=== PATIENT | female | born 1965 | race Caucasian/White ===

== ENCOUNTER 2017-06-26 23:51 | Emergency (ER) | payer OTHER ==
[2017-06-27 01:40] VITALS: BP 185/80
[2017-06-27 03:12] LABS: Mean Corpuscular HGB Conc 30 % (30-34); Mean Corpuscular Volume 74 fl (79-97); Platelet Count 363 K/mm3 (140-440); Red Blood Count 5.06 M/mm3 (3.65-5.03); White Blood Count 11.7 K/mm3 (4.5-11.0)
[2017-06-27 03:25] LABS: Hematocrit 37.5 % (30.3-42.9); Hemoglobin 11.2 gm/dl (10.1-14.3); Mean Corpuscular Hemoglobin 22 pg (28-32); Red Cell Distribution Width 20.8 % (13.2-15.2)
[2017-06-27 03:49] LABS: Anion Gap 18 mmol/L; BUN/Creatinine Ratio 33; Blood Urea Nitrogen 13 mg/dL (7-17); Calcium 8.8 mg/dL (8.4-10.2); Carbon Dioxide 24 mmol/L (22-30); Chloride 100.4 mmol/L (98-107); Glucose 111 mg/dL (65-100); Potassium 5.5 mmol/L (3.6-5.0); Sodium 137 mmol/L (137-145)
[2017-06-27 04:02] LABS: Anisocytosis 1+; Basophils % (Manual) 0 % (0.0-1.8); Blastocytes % (Manual) 0 %; Diff Status Complete; Platelet Estimate Consistent w Auto
[2017-06-27 04:55] LABS: Cholesterol 270 mg/dL (50-199); HDL Cholesterol 80 mg/dL (40-59); LDL Cholesterol,Direct 146 mg/dL (50-130); Triglycerides 221 mg/dL (2-149)
--- NOTE | 2017-06-27 05:38 | Cat Scan Report ---
FINAL REPORT EXAM: CT HEAD/BRAIN WO CON HISTORY: headache TECHNIQUE: Routine axial imaging was obtained of the brain without IV contrast. FINDINGS: There are no attenuation abnormalities. There no evidence of acute stroke or hemorrhage. The ventricular system is appropriate in size. The basal cisterns appear normal. The visualized sinuses are clear. The mastoid air cells are well pneumatized. The calvarium appears intact IMPRESSION: Within normal limits.
== END 2017-06-27 03:00 | disposition left against medical advice (07) ==
LOC: ED 23:51
DX: R03.0 Elevated blood-pressure reading, without diagnosis of hypertension (principal); Z53.21 Procedure and treatment not carried out due to patient leaving prior to being seen by health care provider
CPT/HCPCS: 36415; 70450; 80048; 80061; 84484; 85007; 85025; 93005; 93010

== ENCOUNTER 2018-01-04 09:16 | Observation (INO) | payer OTHER ==
--- NOTE | 2018-01-04 10:52 | Emergency Department Report ---
Nadia Doc - Documentation Documentation: This is a 52-year-old female here with her family reports that she was seen by Dr. Jose Barajas yesterday and had blood work drawn and they called her and told her to come directly to the emergency room for blood transfusion. Patient reports that she feels like her heart is racing in and she is feeling tired with heavy menstrual cycle. Denies any nausea or vomiting. Has a history of high blood pressure and hyperthyroidism. Pain is 0-10. Denies any chest pain but short of breath with exertion. He is on propranolol and medication for hyperthyroidism Gen.: This is a 52-year-old female pale in appearance but nob toxic. Blood pressure 199/79 and heart rate is at 98 beats per minutes. Respiration 20 and she is afebrile with pulse ox 100% on room air Lungs: Clear to auscultation bilaterally, no rhonchi wheezes or rales. Normal work of breathing Cardiovascular: S1, S2. Apical R rate is at 98 bpm. Regular rate and rhythm plan CBC, CMP and type and screen Plan to be transferred to ED for blood transfusion if needed
--- NOTE | 2018-01-04 10:53 | Emergency Department Report ---
Blank Doc - Documentation Documentation: Patient is a 52-year-old female who is presenting with need for transfusion. Patient was seen by her primary care physician Dr. Barajas yesterday had blood drawn was called that she needed to come to the emergency department. Family does not know the exact level of her hemoglobin but was told that it was low enough that she needed a blood transfusion. Patient says some shortness of breath but denies any chest pain. Patient does have history of heavy menstrual periods which is most likely source of her anemia. Brief physical exam patient is tachycardic and pale. Patient will be moved to a treatment room for reevaluation of her CBC and likely transfusion and admission.
--- NOTE | 2018-01-04 11:25 | Emergency Department Report ---
ED General Adult HPI - General Chief complaint: Recheck/Abnormal Lab/Rx Stated complaint: NEED TRANSFUSION Time Seen by Provider: 01/04/18 10:51 Source: patient, family Mode of arrival: Ambulatory Limitations: Language Barrier - History of Present Illness Initial comments: Patient was told by her doctor to go to the ED for blood transfusion. -: Gradual, month(s) (1) Improves with: none Worsens with: none Associated Symptoms: weakness - Related Data Home Medications Medication Instructions Recorded Confirmed Last Taken Inderal 40 mg PO BID 06/27/17 01/04/18 01/04/18 Propylthiouracil 200 mg PO BID 06/27/17 01/04/18 01/04/18 Allergies Allergy/AdvReac Type Severity Reaction Status Date / Time No Known Allergies Allergy Verified 01/04/18 09:39 ED Review of Systems ROS: Stated complaint: NEED TRANSFUSION Other details as noted in HPI Comment: All other systems reviewed and negative Constitutional: denies: chills, fever Eyes: denies: eye pain ENT: denies: ear pain Respiratory: denies: cough, shortness of breath Cardiovascular: denies: chest pain, palpitations Endocrine: no symptoms reported Gastrointestinal: denies: abdominal pain, nausea, vomiting, diarrhea Genitourinary: denies: urgency, frequency Musculoskeletal: denies: back pain Skin: denies: rash, change in color Neurological: weakness. denies: headache, numbness Psychiatric: denies: anxiety, depression Hematological/Lymphatic: easy bleeding. denies: easy bruising ED Past Medical Hx - Past Medical History Hx Hypertension: Yes Additional medical history: Thyroid Disease - Surgical History Past Surgical History?: No - Social History Smoking Status: Never Smoker Substance Use Type: Alcohol - Medications Home Medications: Home Medications Medication Instructions Recorded Confirmed Last Taken Type Inderal 40 mg PO BID 06/27/17 01/04/18 01/04/18 History Propylthiouracil 200 mg PO BID 06/27/17 01/04/18 01/04/18 History ED Physical Exam - General Limitations: Language Barrier General appearance: alert, in no apparent distress - Head Head exam: Present: atraumatic, normocephalic, normal inspection - Eye Eye exam: Present: normal appearance, PERRL, EOMI Pupils: Present: normal accommodation - Neck Neck exam: Present: normal inspection, tenderness, full ROM - Respiratory Respiratory exam: Present: normal lung sounds bilaterally. Absent: respiratory distress, wheezes - Cardiovascular Cardiovascular Exam: Present: regular rate, normal rhythm, normal heart sounds - GI/Abdominal GI/Abdominal exam: Present: soft, normal bowel sounds. Absent: distended, tenderness, guarding, rebound - Rectal Rectal exam: Present: deferred - Extremities Exam Extremities exam: Present: normal inspection, full ROM, normal capillary refill - Back Exam Back exam: Present: normal inspection, full ROM. Absent: tenderness - Neurological Exam Neurological exam: Present: alert, oriented X3, CN II-XII intact - Psychiatric Psychiatric exam: Present: normal affect, normal mood - Skin Skin exam: Present: warm, dry, intact, normal color ED Course Vital Signs 01/04/18 01/04/18 01/04/18 09:21 11:11 12:33 Temperature 98.1 F 98.6 F Pulse Rate 113 H 78 Respiratory 20 16 18 Rate Blood Pressure 199/79 139/49 O2 Sat by Pulse 100 100 Oximetry - Reevaluation(s) Reevaluation #1: 01/04/18 12:23 I discussed patient care with the hospitalist documentation lead Dr Vasquez. He will admit patient to the hospital for further evaluation and management. ED Medical Decision Making - Lab Data Result diagrams: 01/04/18 10:58 01/04/18 10:58 - EKG Data -: EKG Interpreted by Me EKG shows normal: sinus rhythm Rate: normal (90) - EKG Data When compared to previous EKG there are: previous EKG unavailable Interpretation: normal EKG, other (No STEMI) - Radiology Data Radiology results: report reviewed - Medical Decision Making Symptomatic Anemia. Critical care attestation.: If time is entered above; I have spent that time in minutes in the direct care of this critically ill patient, excluding procedure time. ED Disposition Clinical Impression: Symptomatic anemia Disposition: OP ADMIT IP TO THIS HOSP Is pt being admited?: Yes Does the pt Need Aspirin: No Condition: Stable Referrals: VISHAL DE LA O MD [Primary Care Provider] - 3-5 Days Time of Disposition: 12:15
[2018-01-04 11:26] LABS: Basophils # (Auto) 0.1 K/mm3 (0.0-0.1); Basophils % (Auto) 1.4 % (0.0-1.8); Eosinophils # (Auto) 0.4 K/mm3 (0.0-0.4); Eosinophils % (Auto) 4.5 % (0.0-4.3); Lymphocytes # (Auto) 1.9 K/mm3 (1.2-5.4); Lymphocytes % (Auto) 22.1 % (13.4-35.0); Mean Corpuscular HGB Conc 31 % (30-34); Mean Corpuscular Volume 71 fl (79-97); Monocytes # (Auto) 0.6 K/mm3 (0.0-0.8); Monocytes % (Auto) 7.1 % (0.0-7.3); Platelet Count 498 K/mm3 (140-440); Red Blood Count 2.22 M/mm3 (3.65-5.03)
[2018-01-04 11:36] LABS: Alanine Aminotransferase 5 units/L (7-56); Albumin 3.7 g/dL (3.9-5); BUN/Creatinine Ratio 16; Blood Urea Nitrogen 11 mg/dL (7-17); Calcium 8.6 mg/dL (8.4-10.2); Hemolysis Index 1
[2018-01-04 11:39] LABS: Hematocrit 15.7 % (30.3-42.9); Hemoglobin 4.8 gm/dl (10.1-14.3)
[2018-01-04 11:41] LABS: Mean Corpuscular Hemoglobin 22 pg (28-32); Red Cell Distribution Width 21.9 % (13.2-15.2)
[2018-01-04] MEDS ORDERED: NACL 0.9% 500 ML 500 ML IV ONE ×2 (11:48→20:37)
[2018-01-04 12:29] LABS: INR 0.88 (0.87-1.13)
[2018-01-04 12:30] LABS: Partial Thromboplastin Time 25.8 Sec. (24.2-36.6)
[2018-01-04 14:19] LABS: Bacteria,Urine 1+ /HPF (Negative); Bilirubin,Urine NEG (Negative); Blood,Urine LG (Negative); Color,Urine Red (Yellow); Mucus,Urine FEW /HPF; Urobilinogen,Urine < 2.0 mg/dL (<2.0)
[2018-01-04 14:27] LABS: HCG Qualitative,Urine Negative (Negative)
--- NOTE | 2018-01-04 16:54 | History and Physical Report ---
History of Present Illness Date of examination: 01/04/18 Date of admission: 01/04/18 12:18 Chief complaint: CC Low H/H -sent by pcp for Blood transfusion History of present illness: History of Present Illness: Patient was told by her doctor to go to the ED for blood transfusion.-: Gradual , 1month(s) .Patient has heavy menstrual periods lasting for 6 days. History of BT 2 years ago.Has weakness and Lightheadedness. Improves with: none Worsens with: none Associated Symptoms: weakness Past Medical History Hx Hypertension: Yes Additional medical history: Thyroid Disease - Surgical History Past Surgical History?: No - Social History Smoking Status: Never Smoker Substance Use Type: Alcohol - Medications Home Medications: Home Medications Medication Instructions Recorded Confirmed Last Taken Type Inderal 40 mg PO BID 06/27/17 01/04/18 01/04/18 History Propylthiouracil 200 mg PO BID 06/27/17 01/04/18 01/04/18 History Review of Systems ROS: Stated complaint: NEED TRANSFUSION Other details as noted in HPI Comment: All other systems reviewed and negative Constitutional: denies: chills, fever Eyes: denies: eye pain ENT: denies: ear pain Respiratory: denies: cough, shortness of breath Cardiovascular: denies: chest pain, palpitations Endocrine: no symptoms reported Gastrointestinal: denies: abdominal pain, nausea, vomiting, diarrhea Genitourinary: denies: urgency, frequency Musculoskeletal: denies: back pain Skin: denies: rash, change in color Neurological: weakness. denies: headache, numbness Psychiatric: denies: anxiety, depression Hematological/Lymphatic: easy bleeding. denies: easy bruising Medications and Allergies Allergies Allergy/AdvReac Type Severity Reaction Status Date / Time No Known Allergies Allergy Verified 01/04/18 09:39 Home Medications Medication Instructions Recorded Confirmed Last Taken Type Inderal 40 mg PO BID 06/27/17 01/04/18 01/04/18 History Propylthiouracil 200 mg PO BID 06/27/17 01/04/18 01/04/18 History Exam - Constitutional Vitals: Temp Pulse Resp BP Pulse Ox 98.7 F 71 20 129/52 100 01/04/18 13:48 01/04/18 13:48 01/04/18 13:48 01/04/18 13:48 01/04/18 13:00 General appearance: Present: no acute distress, well-nourished - EENT Eyes: Present: PERRL ENT: hearing intact, clear oral mucosa - Neck Neck: Present: supple, normal ROM - Respiratory Respiratory effort: normal Respiratory: bilateral: CTA - Cardiovascular Heart rate: 78 Rhythm: regular Heart Sounds: Present: S1 & S2. Absent: rub, click - Extremities Extremities: pulses symmetrical, No edema Peripheral Pulses: within normal limits - Abdominal General gastrointestinal: Present: soft, non-tender, non-distended, normal bowel sounds Female genitourinary: Present: normal - Integumentary Integumentary: Present: clear, warm, dry - Musculoskeletal Musculoskeletal: gait normal, strength equal bilaterally - Psychiatric Psychiatric: appropriate mood/affect, intact judgment & insight - Neurologic Neurologic: CNII-XII intact, moves all extremities - Allied Health Allied health notes reviewed: nursing, case management Results - Labs CBC & Chem 7: 01/04/18 10:58 01/04/18 10:58 Labs: Laboratory Last Values WBC 8.4 K/mm3 (4.5-11.0) 01/04/18 10:58 RBC 2.22 M/mm3 (3.65-5.03) L 01/04/18 10:58 Hgb 4.8 gm/dl (10.1-14.3) L* 01/04/18 10:58 Hct 15.7 % (30.3-42.9) L* 01/04/18 10:58 MCV 71 fl (79-97) L 01/04/18 10:58 MCH 22 pg (28-32) L 01/04/18 10:58 MCHC 31 % (30-34) 01/04/18 10:58 RDW 21.9 % (13.2-15.2) H 01/04/18 10:58 Plt Count 498 K/mm3 (140-440) H 01/04/18 10:58 Lymph % (Auto) 22.1 % (13.4-35.0) 01/04/18 10:58 [place] % (Auto) 7.1 % (0.0-7.3) 01/04/18 10:58 Eos % (Auto) 4.5 % (0.0-4.3) H 01/04/18 10:58 Baso % (Auto) 1.4 % (0.0-1.8) 01/04/18 10:58 Lymph # 1.9 K/mm3 (1.2-5.4) 01/04/18 10:58 [place] # 0.6 K/mm3 (0.0-0.8) 01/04/18 10:58 Eos # 0.4 K/mm3 (0.0-0.4) 01/04/18 10:58 Baso # 0.1 K/mm3 (0.0-0.1) 01/04/18 10:58 Seg Neutrophils % 64.9 % (40.0-70.0) 01/04/18 10:58 Seg Neutrophils # 5.5 K/mm3 (1.8-7.7) 01/04/18 10:58 PT 12.4 Sec. (12.2-14.9) 01/04/18 11:50 INR 0.88 (0.87-1.13) 01/04/18 11:50 APTT 25.8 Sec. (24.2-36.6) 01/04/18 11:50 Sodium 133 mmol/L (137-145) L 01/04/18 10:58 Potassium 4.6 mmol/L (3.6-5.0) 01/04/18 10:58 Chloride 95.7 mmol/L (98-107) L 01/04/18 10:58 Carbon Dioxide 23 mmol/L (22-30) 01/04/18 10:58 Anion Gap 19 mmol/L 01/04/18 10:58 BUN 11 mg/dL (7-17) 01/04/18 10:58 Creatinine 0.7 mg/dL (0.7-1.2) 01/04/18 10:58 Estimated GFR > 60 ml/min 01/04/18 10:58 BUN/Creatinine Ratio 16 % 01/04/18 10:58 Glucose 113 mg/dL (65-100) H 01/04/18 10:58 Calcium 8.6 mg/dL (8.4-10.2) 01/04/18 10:58 Total Bilirubin 0.30 mg/dL (0.1-1.2) 01/04/18 10:58 AST 22 units/L (5-40) 01/04/18 10:58 ALT 5 units/L (7-56) L 01/04/18 10:58 Alkaline Phosphatase 42 units/L (35-129) 01/04/18 10:58 Total Protein 7.1 g/dL (6.3-8.2) 01/04/18 10:58 Albumin 3.7 g/dL (3.9-5) L 01/04/18 10:58 Albumin/Globulin Ratio 1.1 % 01/04/18 10:58 Urine Color Red (Yellow) 01/04/18 13:42 Urine Turbidity Hazy (Clear) 01/04/18 13:42 Urine pH 8.0 (5.0-7.0) H 01/04/18 13:42 Ur Specific [place] 1.002 (1.003-1.030) L 01/04/18 13:42 Urine Protein 100 mg/dl mg/dL (Negative) 01/04/18 13:42 Urine Glucose (UA) Neg mg/dL (Negative) 01/04/18 13:42 Urine Ketones Neg mg/dL (Negative) 01/04/18 13:42 Urine Blood Lg (Negative) 01/04/18 13:42 Urine Nitrite Neg (Negative) 01/04/18 13:42 Urine Bilirubin Neg (Negative) 01/04/18 13:42 Urine Urobilinogen < 2.0 mg/dL (<2.0) 01/04/18 13:42 Ur Leukocyte Esterase Sm (Negative) 01/04/18 13:42 Urine WBC (Auto) 3.0 /HPF (0.0-6.0) 01/04/18 13:42 Urine RBC (Auto) 5.0 /HPF (0.0-6.0) 01/04/18 13:42 U Epithel Cells (Auto) 3.0 /HPF (0-13.0) 01/04/18 13:42 Urine Bacteria (Auto) 1+ /HPF (Negative) 01/04/18 13:42 Urine Mucus Few /HPF 01/04/18 13:42 Urine HCG, Qual Negative (Negative) 01/04/18 13:42 Blood Type O POSITIVE 01/04/18 10:52 Antibody Screen Negative 01/04/18 10:52 Crossmatch See Detail 01/04/18 10:52 Short CBC 01/04/18 Range/Units 10:58 WBC 8.4 (4.5-11.0) K/mm3 Hgb 4.8 L* (10.1-14.3) gm/dl Hct 15.7 L* (30.3-42.9) % Plt Count 498 H (140-440) K/mm3 BMP 01/04/18 10:58 Sodium 133 L Potassium 4.6 Chloride 95.7 L Carbon Dioxide 23 BUN 11 Creatinine 0.7 Glucose 113 H Calcium 8.6 Liver Function 01/04/18 Range/Units 10:58 Total Bilirubin 0.30 (0.1-1.2) mg/dL AST 22 (5-40) units/L ALT 5 L (7-56) units/L Alkaline Phosphatase 42 (35-129) units/L Albumin 3.7 L (3.9-5) g/dL Urine 01/04/18 Range/Units 13:42 Urine Color Red (Yellow) Urine pH 8.0 H (5.0-7.0) Ur Specific [place] 1.002 L (1.003-1.030) Urine Protein 100 mg/dl (Negative) mg/dL Urine Glucose (UA) Neg (Negative) mg/dL - Imaging and Cardiology EKG: report reviewed Imaging and Cardiology: Imaging studies Pelvic ultrasound Multiple focal lesions of the uterus suspicious for fibroids-----measuring 3.5 4 cm. Transvaginal u/s Same findings Assessment and Plan Advance Directives: Yes (full code) VTE prophylaxis?: Chemical Plan of care discussed with patient/family: Yes - Patient Problems (1) Acute blood loss anemia Current Visit: Yes Status: Acute Plan to address problem: Secondary to menorrhagia Transfuse 2-4 units of blood PROJECT COORDINATOR RN consult Dr. Tien Cuevas Patient. may need Hysterectomy as outpatient after discharge (2) Dysfunctional uterine bleeding Current Visit: Yes Status: Chronic Plan to address problem: PROJECT COORDINATOR RN consult requested (3) HTN (hypertension), benign Current Visit: Yes Status: Chronic Plan to address problem: Continue antihypertensives (4) Hyperthyroidism Current Visit: Yes Status: Chronic Plan to address problem: Cont propyl thiouracil (5) DVT prophylaxis Current Visit: Yes Status: Acute Plan to address problem: Cont SCD's
--- NOTE | 2018-01-05 00:06 | Ultrasound Report ---
FINAL REPORT PROCEDURE: US PELVIC TECHNIQUE: Real-time transabdominal sonography in multiple planes of pelvis was performed with image documentation. This examination was performed without Doppler. Vascular abnormalities, including ovarian torsion, will not be detectable without Doppler evaluation. CPT 05807 HISTORY: Vaginal bleeding COMPARISON: No prior studies are available for comparison. FINDINGS: UTERUS Size: 14.6 x 7.9 x 8.5 cm. Endometrial thickness: 14 mm. Orientation: anteverted. Cervix: Normal. Fibroids/masses: 3.5 x 4.0 centimeter submucosal slightly hypoechoic lesion is noted involving the left anterolateral portion of uterine body. There also a few additional smaller hypoechoic lesions in the uterine body.. Bilateral ovaries are not visualized. Pelvic fluid: None. Other: None. IMPRESSION: Multiple focal lesions of the uterus are suspicious for fibroids largest measuring 3.5 x 4.0 centimeters. Endometrium appears thickened.
--- NOTE | 2018-01-05 00:11 | Ultrasound Report ---
FINAL REPORT PROCEDURE: US TRANSVAGINAL TECHNIQUE: Real-time transvaginal sonography in multiple planes of the pelvis was performed with image documentation. This examination was performed without Doppler. Vascular abnormalities, including ovarian torsion, will not be detectable without Doppler evaluation. CPT 30801 HISTORY: Vaginal bleeding COMPARISON: No prior studies are available for comparison. FINDINGS: UTERUS Size: 14.6 x 7.9 x 8.5 cm. Endometrial thickness: 14 mm. Orientation: anteverted. Cervix: Normal. Fibroids/masses: 3.5 x 4.0 centimeter submucosal slightly hypoechoic lesion is noted involving the left anterolateral portion of uterine body. There also a few additional smaller hypoechoic lesions in the uterine body.. Bilateral ovaries are not visualized. Pelvic fluid: None. Other: None. IMPRESSION: Multiple focal lesions of the uterus are suspicious for fibroids largest measuring 3.5 x 4.0 centimeters. Endometrium appears thickened.
[2018-01-05] MEDS ORDERED: SODIUM CHLORIDE FLUSH SYRINGE 10 ML IV PRN (00:43)
[2018-01-05] MEDS ORDERED: TYLENOL PO PRN (00:43)
[2018-01-05] MEDS ORDERED: MORPHINE IV PRN (00:43)
[2018-01-05] MEDS ORDERED: PERCOCET 5/325 PO PRN (00:43)
[2018-01-05] MEDS ORDERED: ZOFRAN IV PRN (00:43)
[2018-01-05] MEDS ORDERED: D5NS 1,000 ML IV SCH (01:00)
[2018-01-05 01:37] LABS: Basophils # (Auto) 0.1 K/mm3 (0.0-0.1); Eosinophils # (Auto) 0.4 K/mm3 (0.0-0.4); Eosinophils % (Auto) 3.9 % (0.0-4.3); Hematocrit 26.8 % (30.3-42.9); Hemoglobin 8.8 gm/dl (10.1-14.3); Lymphocytes # (Auto) 2.1 K/mm3 (1.2-5.4); Lymphocytes % (Auto) 20.5 % (13.4-35.0); Mean Corpuscular HGB Conc 33 % (30-34); Mean Corpuscular Volume 78 fl (79-97); Monocytes % (Auto) 9.5 % (0.0-7.3); Platelet Count 379 K/mm3 (140-440); Red Blood Count 3.44 M/mm3 (3.65-5.03)
[2018-01-05 01:49] LABS: Mean Corpuscular Hemoglobin 26 pg (28-32); Red Cell Distribution Width 20.8 % (13.2-15.2)
[2018-01-05 02:00] LABS: BUN/Creatinine Ratio 20; Blood Urea Nitrogen 10 mg/dL (7-17); Calcium 8.3 mg/dL (8.4-10.2); Hemolysis Index 0
--- NOTE | 2018-01-05 03:09 | Consultation ---
History of Present Illness Consult date: 01/05/18 Requesting physician: SIMONE CHRISTIE Reason for consult: menorrhagia History of present illness: Patient is a 52-year-old female LMP 01/02/18 who presented to [facility] ER for a blood transfusion. Patient was seen by her primary care physician Dr. Barajas yesterday had blood drawn was called that she needed to come to the emergency department. Family does not know the exact level of her hemoglobin but was told that it was low enough that she needed a blood transfusion. Patient says some shortness of breath but denies any chest pain. Patient does have history of heavy menstrual periods which is most likely source of her anemia. Pelvic u/s showed uterus 14.6 x 7.9 x 8.5cm with multiple fibroids for which I have been consulted to evaluate. 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 She has already been transfused, and is feeling much better with scant vaginal bleeding. 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 Social history: no significant social history, Medications and Allergies Allergies Allergy/AdvReac Type Severity Reaction Status Date / Time No Known Allergies Allergy Verified 01/04/18 09:39 Home Medications Medication Instructions Recorded Confirmed Last Taken Type Inderal 40 mg PO BID 06/27/17 01/04/18 01/04/18 History Propylthiouracil 200 mg PO BID 06/27/17 01/04/18 01/04/18 History Zolpidem [Ambien] 5 mg PO QHS PRN #5 tablet 01/05/18 Unknown Rx Active Meds: Active Medications Acetaminophen (Tylenol) 650 mg PO Q4H PRN PRN Reason: Pain MILD(1-3)/Fever >100.5/RUIZ Last Admin: 01/05/18 03:04 Dose: 650 mg Famotidine (Pepcid) 20 mg PO BID BRISEIDA Sodium Chloride (Nacl 0.9% 500 Ml) 500 mls @ 50 mls/hr IV ONCE ONE Stop: 01/05/18 06:36 Last Admin: 01/04/18 21:31 Dose: 50 mls/hr Dextrose/Sodium Chloride (D5ns) 1,000 mls @ 42 mls/hr IV DIRECT BRISEIDA Last Admin: 01/05/18 03:05 Dose: 42 mls/hr Morphine Sulfate (Morphine) 2 mg IV Q4H PRN PRN Reason: Pain, Moderate (4-6) Ondansetron HCl (Zofran) 4 mg IV Q8H PRN PRN Reason: Nausea And Vomiting Oxycodone/Acetaminophen (Percocet 5/325) 1 tab PO Q6H PRN PRN Reason: Pain, Moderate (4-6) Propranolol HCl (Inderal) 40 mg PO BID BRISEIDA Propylthiouracil (Propylthiouracil) 200 mg PO BID BRISEIDA Sodium Chloride (Sodium Chloride Flush Syringe 10 Ml) 10 ml IV BID BRISEIDA Sodium Chloride (Sodium Chloride Flush Syringe 10 Ml) 10 ml IV PRN PRN PRN Reason: LINE FLUSH Review of Systems All systems: negative - Vital Signs Vital signs: Vital Signs Temp Pulse Resp BP Pulse Ox 98.1 F 113 H 20 199/79 100 01/04/18 09:21 01/04/18 09:21 01/04/18 09:21 01/04/18 09:21 01/04/18 09:21 Temp Pulse Resp BP Pulse Ox 98.3 F 74 18 129/56 100 01/04/18 23:05 01/04/18 23:05 01/04/18 23:05 01/04/18 23:05 01/04/18 23:05 - Physical Exam Breasts: Positive: deferred Cardiovascular: Regular rate Lungs: Positive: Clear to auscultation Abdomen: Positive: normal appearance, soft, mass Uterus: Positive: enlarged Extremities: Positive: normal Results Result Diagrams: 01/05/18 01:11 01/05/18 01:11 Abnormal lab results 01/04/18 01/04/18 01/04/18 Range/Units 10:52 10:58 10:58 RBC 2.22 L (3.65-5.03) M/mm3 Hgb 4.8 L* (10.1-14.3) gm/dl Hct 15.7 L* (30.3-42.9) % MCV 71 L (79-97) fl MCH 22 L (28-32) pg RDW 21.9 H (13.2-15.2) % Plt Count 498 H (140-440) K/mm3 [place] % (Auto) (0.0-7.3) % Eos % (Auto) 4.5 H (0.0-4.3) % [place] # (0.0-0.8) K/mm3 Sodium 133 L (137-145) mmol/L Chloride 95.7 L (98-107) mmol/L Creatinine (0.7-1.2) mg/dL Glucose 113 H (65-100) mg/dL Calcium (8.4-10.2) mg/dL ALT 5 L (7-56) units/L Albumin 3.7 L (3.9-5) g/dL Urine pH (5.0-7.0) Ur Specific [place] (1.003-1.030) Crossmatch See Detail 01/04/18 01/05/18 01/05/18 Range/Units 13:42 01:11 01:11 RBC 3.44 L (3.65-5.03) M/mm3 Hgb 8.8 L D (10.1-14.3) gm/dl Hct 26.8 L D (30.3-42.9) % MCV 78 L (79-97) fl MCH 26 L (28-32) pg RDW 20.8 H (13.2-15.2) % Plt Count (140-440) K/mm3 [place] % (Auto) 9.5 H (0.0-7.3) % Eos % (Auto) (0.0-4.3) % [place] # 1.0 H (0.0-0.8) K/mm3 Sodium (137-145) mmol/L Chloride (98-107) mmol/L Creatinine 0.5 L (0.7-1.2) mg/dL Glucose 103 H (65-100) mg/dL Calcium 8.3 L (8.4-10.2) mg/dL ALT (7-56) units/L Albumin (3.9-5) g/dL Urine pH 8.0 H (5.0-7.0) Ur Specific [place] 1.002 L (1.003-1.030) Crossmatch All other labs normal. Ultrasound: report reviewed Assessment and Plan - Patient Problems (1) Uterine fibroid Onset Date: 01/05/18 Current Visit: Yes Status: Acute Qualifiers: Uterine leiomyoma location: intramural and subserous Qualified Code(s): D25.1 - Intramural leiomyoma of uterus; D25.2 - Subserosal leiomyoma of uterus Plan to address problem: A: Symptomatic anemia - most likely due to menorrhagia - improved with blood transfusion Uterine fibroids Menorrhagia - most likely due to uterine fibroids P: Agree with admission for blood transfusion She can follow up in my office next week for a Pap and endometrial biopsy before scheduling a Total Abdominal Hysterectomy. All questions answered from her and her daughter who was present. Thank you for the consultation. (2) Symptomatic anemia Onset Date: 01/05/18 Current Visit: Yes Status: Acute (3) Dysfunctional uterine bleeding Onset Date: 01/05/18 Current Visit: Yes Status: Chronic
[2018-01-05] MEDS: PROPYLTHIOURACIL PO SCH ×2 (03:13→09:49)
[2018-01-05] MEDS: INDERAL PO SCH ×3 (03:13→09:50)
[2018-01-05] MEDS ORDERED: PEPCID PO SCH (10:00)
[2018-01-05] MEDS ORDERED: SODIUM CHLORIDE FLUSH SYRINGE 10 ML IV SCH (10:00)
--- NOTE | 2018-01-05 14:25 | Discharge Summary ---
Providers - Providers Date of Admission: 01/04/18 12:18 Date of discharge: 01/05/18 Attending physician: ISAÍAS JONES 01/05/18 00:43 Consult to Physician [CONS] Routine Comment: Consulting Provider: TIEN CUEVAS Physician Instructions: Reason For Exam: menorrhagia Primary care physician: VISHAL DE LA O Hospitalization Condition: Stable Hospital course: (1) Acute blood loss anemia, Symptomatic anemia Current Visit: Yes Status: Acute Plan to address problem: Secondary to menorrhagia Transfuse 2-4 units of blood [employer] consult Dr. Tien Cuevas Patient. 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 Tien Cuevas: Uterine fibroid Onset Date: 01/05/18 Current Visit: Yes Status: Acute Qualifiers: (1A) Uterine leiomyoma location: intramural and subserous Qualified Code(s): D25.1 - Intramural leiomyoma of uterus; D25.2 - Subserosal leiomyoma of uterus Plan to address problem: A: Symptomatic anemia - most likely due to menorrhagia - improved with blood transfusion Uterine fibroids Menorrhagia - most likely due to uterine fibroids P: Agree with admission for blood transfusion She can follow up in my office next week for a Pap and endometrial biopsy before scheduling a Total Abdominal Hysterectomy. All questions answered from her and her daughter who was present. Thank you for the consultation. Daughter Tianna at bedside help navy seal, Palestinian dialect Disposition: DC-01 TO HOME OR SELFCARE Time spent for discharge: 35 minutes Core Measure Documentation - Palliative Care Palliative Care/ Comfort Measures: Not Applicable - Core Measures Any of the following diagnoses?: none - VTE Discharge Requirements Deep Vein Thrombosis/Pulmonary Embolism Present on Admission: No Has pt received <5 days of overlap therapy or INR<2.0: No Anticoagulant overlap therapy prescribed at discharge: No Contraindication No Overlap Therapy order at DC: Not Indicated Exam - Constitutional Vitals: Temp Pulse Resp BP Pulse Ox 98.6 F 66 15 121/49 99 01/05/18 07:28 01/05/18 07:28 01/05/18 07:28 01/05/18 07:28 01/05/18 07:28 General appearance: Present: no acute distress - EENT Eyes: Present: PERRL, EOM intact ENT: hearing intact - Neck Neck: Present: supple, normal ROM - Respiratory Respiratory effort: normal Respiratory: bilateral: CTA - Cardiovascular Rhythm: regular Heart Sounds: Present: S1 & S2 - Extremities Extremities: no ischemia Peripheral Pulses: within normal limits - Abdominal General gastrointestinal: Present: soft, non-tender, non-distended, normal bowel sounds - Integumentary Integumentary: Present: clear, warm, dry - Musculoskeletal Musculoskeletal: strength equal bilaterally - Psychiatric Psychiatric: appropriate mood/affect - Neurologic Neurologic: CNII-XII intact, no focal deficits - Allied Health Allied health notes reviewed: nursing Plan Activity: other (no strenous activity until cleared by pcp) Diet: regular Follow up with: VISHAL DE LA O MD [Primary Care Provider] - 3-5 Days TIEN CUEVAS MD [Staff Physician] - 7 Days Forms: Work/School Release Form Prescriptions: Zolpidem [Ambien] 5 mg PO QHS PRN #5 tablet PRN Reason: Sleep
[2018-01-05 16:26] VITALS: BP 115/53
== END 2018-01-05 17:00 | disposition home or self-care (01) ==
LOC: ED 09:16 → 3A 12:18 → INTOOBSV 12:18 → 3A 13:01
PROVIDERS: ADMIT Internal Medicine; ATTEND Internal Medicine
DX: D50.0 Iron deficiency anemia secondary to blood loss (chronic) (principal); N93.8 Other specified abnormal uterine and vaginal bleeding; E05.90 Thyrotoxicosis, unspecified without thyrotoxic crisis or storm; I10 Essential (primary) hypertension; Z79.899 Other long term (current) drug therapy; Z79.1 Long term (current) use of non-steroidal anti-inflammatories (NSAID); Z79.2 Long term (current) use of antibiotics
CPT/HCPCS: 36415; 36430; 76830; 76856; 80048; 80053; 81001; 81025; 85025; 85610; 85730; 86850; 86900; 86901; 86920; 93005; 93010; 99285; G0378; J7040; J7042; P9016

== ENCOUNTER 2018-04-11 11:05 | Observation (INO) | payer OTHER ==
--- NOTE | 2018-04-11 12:43 | History and Physical Report ---
History of Present Illness Date of examination: 04/11/18 Chief complaint: Symptomatic uterine fibroids History of present illness: Patient is a 52-year-old female LMP 03/31/2018 presents for surgical evaluation and treatment of symptomatic uterine fibroids. She was recently hospitalized for postmenopausal bleeding, and pelvic ultrasound showed the uterus to measure 14.6 x 7.9 x 8.5 cm with several fibroids and thickened endometrium. Endometrial biopsy was showed benign proliferative endometrium. She is therefore scheduled for a Robotic-Assisted Total Hysterectomy with Bilateral Salpingo-oophorectomy. Past History Past Medical History: thyroid disease Past Surgical History: no surgical history [employer]IST History: fibroids Social history: no significant social history, Medications and Allergies Allergies Allergy/AdvReac Type Severity Reaction Status Date / Time No Known Allergies Allergy Verified 01/04/18 09:39 Home Medications Medication Instructions Recorded Confirmed Last Taken Type Inderal 40 mg PO BID 06/27/17 01/04/18 01/04/18 History Propylthiouracil 200 mg PO BID 06/27/17 01/04/18 01/04/18 History Zolpidem [Ambien] 5 mg PO QHS PRN #5 tablet 01/05/18 Unknown Rx Review of Systems All systems: negative - Physical Exam Breasts: Positive: deferred, mass Lungs: Positive: Clear to auscultation Abdomen: Positive: normal appearance Genitourinary (Female): Positive: normal external genitalia Uterus: Positive: enlarged Extremities: Positive: normal Results Result Diagrams: 04/11/18 13:25 All other labs normal. Ultrasound: report reviewed Assessment and Plan - Patient Problems (1) Post-menopausal bleeding Onset Date: 04/11/18 Current Visit: Yes Status: Acute Plan to address problem: A: Postmenopausal bleeding Uterine fibroids Chronic hypertension Hyperthyroidism P: Admit for a Robotic Assisted Total Hysterectomy with Bilateral SalpingoOophorectomy. (2) Uterine fibroid Onset Date: 04/11/18 Current Visit: No Status: Acute Qualifiers: Uterine leiomyoma location: intramural and subserous Qualified Code(s): D25.1 - Intramural leiomyoma of uterus; D25.2 - Subserosal leiomyoma of uterus (3) HTN (hypertension), benign Onset Date: 04/11/18 Current Visit: No Status: Chronic (4) Hyperthyroidism Onset Date: 04/11/18 Current Visit: No Status: Chronic
[2018-04-11] MEDS ORDERED: NEURONTIN PO NR (13:00)
[2018-04-11] MEDS ORDERED: ANCEF/STERILE WATER 2 GM/20 ML 2 GM/20 ML SYRINGE IV SCH (13:00)
[2018-04-11] MEDS ORDERED: LACTATED RINGERS 1,000 ML IV SCH ×2 (13:00)
--- NOTE | 2018-04-11 13:02 | Anesthesia Day of Surgery ---
Anesthesia Day of Surgery - Day of Surgery Patient Examined: Yes Patient H&P Reviewed: Yes Patient is NPO: Yes Beta Blockers: Yes
--- NOTE | 2018-04-11 13:02 | Anesthesia Consultation ---
Anesthesia Consult and Med Hx Date of service: 04/11/18 - Airway Anesthetic Teeth Evaluation: Good ROM Head & Neck: Adequate Mental/Hyoid Distance: Adequate Mallampati Class: Class II Intubation Access Assessment: Probably Good - Pulmonary Exam CTA: Yes - Cardiac Exam Cardiac Exam: RRR - Pre-Operative Health Status ASA Pre-Surgery Classification: ASA2 Proposed Anesthetic Plan: General - Pulmonary Hx Smoking: No Hx Asthma: No Hx Respiratory Symptoms: No COPD: No Hx Pneumonia: No - Cardiovascular System Hx Hypertension: Yes Hx Heart Attack/AMI: No - Central Nervous System Hx Seizures: No CVA: No - Gastrointestinal Hx Gastroesophageal Reflux Disease: No - Endocrine Hx Renal Disease: No Hx Liver Disease: No Hx Insulin Dependent Diabetes: No Hx Hyperthyroidism: Yes (on PTU, propanolol) - Hematic Hx Anemia: Yes (requiring transfusions in the past) - Additional Comments Anesthesia Medical History Comments: No prior general anesthetics.
[2018-04-11] MEDS: VERSED IV PRN ×2 (13:25→13:59)
[2018-04-11] MEDS ORDERED: DIPRIVAN 10 MG/ML IV ONE (13:29)
[2018-04-11] MEDS ORDERED: XYLOCAINE MPF 2% ONE (13:30)
[2018-04-11] MEDS ORDERED: ZEMURON IV ONE ×3 (13:30→15:49)
[2018-04-11] MEDS ORDERED: DILAUDID ONE ×2 (13:30)
[2018-04-11 13:46] LABS: Hematocrit 38.1 % (30.3-42.9); Hemoglobin 12.3 gm/dl (10.1-14.3); Mean Corpuscular HGB Conc 32 % (30-34); Mean Corpuscular Hemoglobin 23 pg (28-32); Mean Corpuscular Volume 73 fl (79-97); Platelet Count 306 K/mm3 (140-440); Red Blood Count 5.25 M/mm3 (3.65-5.03); Red Cell Distribution Width 20.5 % (13.2-15.2)
[2018-04-11 13:47] LABS: Basophils # (Auto) 0.1 K/mm3 (0.0-0.1); Basophils % (Auto) 1.1 % (0.0-1.8); Eosinophils # (Auto) 0.5 K/mm3 (0.0-0.4); Eosinophils % (Auto) 6.3 % (0.0-4.3); Lymphocytes % (Auto) 25.1 % (13.4-35.0); Monocytes # (Auto) 0.5 K/mm3 (0.0-0.8); Monocytes % (Auto) 6.4 % (0.0-7.3)
[2018-04-11] MEDS ORDERED: TORADOL ONE (15:27)
[2018-04-11] MEDS ORDERED: DECADRON ONE (15:27)
[2018-04-11] MEDS ORDERED: ROBINUL ONE (15:28)
[2018-04-11] MEDS ORDERED: MARCAINE-EPI 0.25%-1:200,000 INFILTRATI ONE (15:31)
[2018-04-11] MEDS ORDERED: NEOSPORIN GU IR ONE (15:31)
[2018-04-11] MEDS ORDERED: LACTATED RINGERS 1,000 ML ONE (15:56)
[2018-04-11] MEDS ORDERED: MARCAINE 0.5% INFILTRATI ONE (16:54)
[2018-04-11] MEDS ORDERED: BENADRYL IV PRN (17:03)
[2018-04-11] MEDS ORDERED: MILK OF MAGNESIA PO PRN (17:03)
[2018-04-11] MEDS ORDERED: NORCO 5/325 PO PRN (17:03)
[2018-04-11] MEDS ORDERED: PERCOCET 5/325 PO PRN (17:03)
[2018-04-11] MEDS ORDERED: NARCAN 0.4 MG/1 ML IV PRN ×2 (17:03)
[2018-04-11] MEDS ORDERED: REGLAN IV PRN (17:03)
[2018-04-11] MEDS ORDERED: ZOFRAN IV PRN (17:03)
[2018-04-11] MEDS ORDERED: TYLENOL PO PRN (17:03)
--- NOTE | 2018-04-11 17:52 | Operative Report ---
Operative Report Operative Report: Date of procedure: 04/11/2018 Pre-operative diagnosis: 1. Postmenopausal bleeding 2. Uterine fibroids 3. Menorrhagia Post-operative diagnosis: Same Procedure name(s): Robotic-assisted total hysterectomy with bilateral salpingo- oophorectomy Surgeon: Tien Cuevas MD Delinquency Prevention Officer: Yadira Burt CSA Anesthesia: Gen. endotracheal intubation by Dr. Rubi EBL: 100 mls Findings: A 12 -14 week size multi-myomatous uterus. Normal tubes and atrophic ovaries bilaterally. Procedure: After the patient's first correctly identified she was prepped and draped in the usual sterile fashion and placed in the dorsolithotomy position. The bladder was first catheterized using Milner catheter and the speculum was placed in the vagina and the anterior lip of the cervix was grasped using a single-tooth tenaculum, and the medium Vesicare cup was placed. The tenaculum and speculum was then removed from the vagina and attention was then turned to the abdomen. The skin knife was used to make a small incision approximately 5 cm above the umbilicus through which a 12 mm trocar was placed under direct visualization. After adequate amount of abdominal insufflation visualization of the pelvic organs found the uterus to be enlarged and the tubes were normal and the ovaries were atrophic bilaterally. A right and left paramedian incision was made through which the 8 mm trochars were placed under direct visualization and a 5 mm trocar was placed in the right upper quadrant. The patient was then placed in steep Trendelenburg positioning and the robot was docked on the patient's left side. After all the robotic ports were connected and adequate functioning of the robotic arms were tested the surgeon then proceeded to the console to begin the hysterectomy. First the left round ligament was grasped, cauterized and cut, the left infundibulopelvic ligament was grasped, cauterized and cut, and the left fallopian tube also grasped, cauterized and cut along the mesosalpinx, thus freeing the left ovary from the left pelvic sidewall. The same procedure was performed on the right. The right round ligament was grasped, cauterized and cut, the right infundibulopelvic ligament was grasped, cauterized and cut, and the right fallopian tube also grasped, cauterized and cut along the mesosalpinx , thus freeing the right ovary from the right pelvic sidewall. The bladder flap was taken down anteriorly and the uterine vessels were grasped, cauterized and cut bilaterally. The cardinal ligaments were sequentially grasped, cauterized and cut down to the level of the uterosacral ligaments. At this time the posterior colpotomy was performed over the Vcare cup, and the cervix was circumscribed beginning posteriorly and meeting anteriorly until the cervix was freed. The cervix and uterus was then removed through the vagina and sent to pathology. The vaginal cuff was then closed using 2-0 Vloc suture in a running fashion. Irrigation was then performed and after good hemostasis was achieved the procedure was considered complete. The Tisseel sealant was then sprayed across the vaginal cuff site, and after excellent hemostasis was assured Interceed was placed across the vaginal cuff site. All instruments were then removed from the abdominal cavity. And each incision was closed using 0 Vicryl suture in a [id number] configuration on the fascia followed by 4-0 Monocryl suture in a sub-cuticular fashion on the skin. Each incision was also infiltrated using 0.5% Marcaine solution. The vaginal pack was removed. The patient tolerated the procedure well and was transported to the recovery room in stable condition.
[2018-04-11] MEDS: DILAUDID IV PRN ×2 (17:58→18:12)
[2018-04-11] MEDS ORDERED: APRESOLINE IV PRN (17:58)
[2018-04-11] MEDS ORDERED: MORPHINE PCA 30MG/30ML IV SCH (18:00)
[2018-04-11] MEDS ORDERED: NACL 0.9% 1000 ML 1,000 ML IV SCH (18:00)
[2018-04-11] MEDS: D5LR 1,000 ML IV SCH (18:49)
[2018-04-11] MEDS ORDERED: CLIMARA TD SCH (20:00)
[2018-04-12] MEDS: SENOKOT S PO SCH ×2 (00:52→09:50)
[2018-04-12] MEDS: COLACE PO SCH ×2 (00:52→09:50)
[2018-04-12] MEDS: ANCEF/NS 1 GM/50 ML 1 GM/50 ML BAG IV SCH ×2 (00:55→06:40)
[2018-04-12] MEDS: TORADOL IV SCH ×4 (00:55→13:30)
[2018-04-12] MEDS: D5LR 1,000 ML IV SCH (03:26)
[2018-04-12 06:21] LABS: Hematocrit 33.1 % (30.3-42.9); Hemoglobin 10.5 gm/dl (10.1-14.3)
--- NOTE | 2018-04-12 08:08 | Progress Note ---
Assessment and Plan - Patient Problems (1) Post-menopausal bleeding Onset Date: 04/11/18 Current Visit: Yes Status: Resolved (2) Uterine fibroid Onset Date: 04/11/18 Current Visit: No Status: Resolved Qualifiers: Uterine leiomyoma location: intramural and subserous Qualified Code(s): D25.1 - Intramural leiomyoma of uterus; D25.2 - Subserosal leiomyoma of uterus (3) HTN (hypertension), benign Onset Date: 04/11/18 Current Visit: No Status: Chronic (4) Hyperthyroidism Onset Date: 04/11/18 Current Visit: No Status: Chronic (5) Status post robot-assisted surgical procedure Onset Date: 04/12/18 Current Visit: Yes Status: Resolved Plan to address problem: A: S/P RATH with BSO - POD #1 Doing well P: Will advance diet as tolerated, and discharge to home after lunch if doing well. Subjective - Subjective Date of service: 04/12/18 Principal diagnosis: s/p RATH - POD #1 Interval history: Patient is s/p a Robotic-Assisted Total Hysterectomy with Bilateral Salpingo- oophorectomy, and feeling well. She was nauseated last night, but has not had breakfast yet. Patient reports: appetite normal, voiding normally, pain well controlled, ambulating normally, nauseated, no flatus Objective - Vital Signs Latest vital signs: Vital Signs Temp Pulse Resp BP Pulse Ox 04/12/18 06:45 20 04/12/18 05:00 18 04/12/18 04:04 98.4 F 79 18 123/56 95 04/12/18 03:00 18 04/12/18 01:00 20 04/11/18 23:33 98.6 F 81 18 117/62 97 04/11/18 23:00 18 04/11/18 22:35 20 04/11/18 21:00 18 04/11/18 20:15 98.5 F 92 H 21 143/71 96 04/11/18 20:04 98.3 F 92 H 21 143/71 94 04/11/18 19:45 98.4 F 86 14 125/58 97 04/11/18 19:30 83 16 132/57 95 04/11/18 19:15 82 16 134/59 96 04/11/18 19:00 74 18 143/59 97 04/11/18 18:45 76 15 148/62 97 04/11/18 18:42 14 04/11/18 18:30 71 13 148/66 96 04/11/18 18:15 74 17 148/77 96 04/11/18 18:12 16 04/11/18 18:00 63 14 157/87 100 04/11/18 17:58 57 L 12 178/84 04/11/18 17:45 57 L 13 181/84 100 04/11/18 17:40 54 L 15 135/84 100 04/11/18 17:35 55 L 12 145/82 100 04/11/18 17:30 97.6 F 54 L 14 163/82 100 04/11/18 13:00 99.5 F 72 16 185/77 100 Intake and Output 04/11/18 04/12/18 04/12/18 22:59 06:59 14:59 Intake Total 900 1050 Output Total 300 550 500 Balance 600 500 -500 Intake: IV 900 1050 ANCEF/NS 1 GM/50 ML 1 gm 50 In 50 ml @ 100 mls/hr IV Q8H BRISEIDA Rx#:[id number] D5lr 1,000 ml @ 125 mls/ 1000 hr IV DIRECT BRISEIDA Rx#: [id number] Output: Urine 300 550 500 Indwelling Catheter 550 Void 500 Other: Total, Output Amount 50 500 Voiding Method Indwelling Catheter - Exam Breasts: Present: deferred Cardiovascular: Present: Regular rate Lungs: Present: Clear to auscultation Abdomen: Present: normal appearance, soft Extremities: Present: normal Incision: Present: normal, dry, intact - Labs Labs: Abnormal lab results 04/11/18 Range/Units 13:25 RBC 5.25 H (3.65-5.03) M/mm3 MCV 73 L (79-97) fl MCH 23 L (28-32) pg RDW 20.5 H (13.2-15.2) % Eos % (Auto) 6.3 H (0.0-4.3) % Eos # 0.5 H (0.0-0.4) K/mm3 Laboratory Tests 04/11/18 04/11/18 04/12/18 13:25 13:25 05:56 WBC 7.8 RBC 5.25 H Hgb 12.3 10.5 Hct 38.1 33.1 MCV 73 L MCH 23 L MCHC 32 RDW 20.5 H Plt Count 306 Lymph % (Auto) 25.1 [place] % (Auto) 6.4 Eos % (Auto) 6.3 H Baso % (Auto) 1.1 Lymph # 2.0 [place] # 0.5 Eos # 0.5 H Baso # 0.1 Seg Neutrophils % 61.1 Seg Neutrophils # 4.8 Blood Type O POSITIVE Antibody Screen Negative
--- NOTE | 2018-04-12 14:20 | Discharge Summary ---
Providers - Providers Date of Admission: 04/11/18 17:03 Date of discharge: 04/12/18 Attending physician: NESSA MILLS Primary care physician: VISHAL DE LA O Hospitalization Reason for admission: other (Postmenopausal bleeding; Uterine fibroids; Menorrhagia) Procedure: other (Robotic Assisted Total Hysterectomy with BSO) Episiotomy: none Laceration: none Incision: normal, dry, intact Other procedures: none complications: none Discharge diagnosis: other (s/p RATH with BSO) Hospital course: Patient is a 52-year-old female LMP 03/31/2018 who presented for surgical evaluation and treatment of symptomatic uterine fibroids. She was recently hospitalized for postmenopausal bleeding, and pelvic ultrasound showed the uterus to measure 14.6 x 7.9 x 8.5 cm with several fibroids and thickened endometrium. Endometrial biopsy was showed benign proliferative endometrium. She underwent an uncomplicated Robotic-Assisted Total Hysterectomy with Bilateral Salpingo-oophorectomy, and by POD #1 she was tolerating a reg diet without nausea or vomiting, ambulating and voiding without difficulty. She was therefore discharged to home on POD #1 in stable condition. Condition at discharge: Good Disposition: DC-01 TO HOME OR SELFCARE - Discharge Diagnoses (1) Post-menopausal bleeding Status: Resolved (2) Uterine fibroid Status: Resolved Qualifiers: Uterine leiomyoma location: intramural and subserous Qualified Code(s): D25.1 - Intramural leiomyoma of uterus; D25.2 - Subserosal leiomyoma of uterus (3) HTN (hypertension), benign Status: Chronic (4) Hyperthyroidism Status: Chronic (5) Status post robot-assisted surgical procedure Status: Resolved Plan - Discharge Medications Prescriptions: Estradiol [Climara] 0.1 mg TD TuFr #4 patch HYDROcodone/APAP 5-325 [D Hanis 5-325 mg TAB] 1 each PO Q6HR PRN #30 tablet PRN Reason: Pain, Moderate (4-6) Ibuprofen [Motrin] 800 mg PO Q8HR PRN #30 tablet PRN Reason: Moder Pain Unrelieved By D Hanis - Provider Discharge Summary Activity: routine, no sex for 6 weeks, no heavy lifting 4 weeks, no strenuous exercise Diet: routine Instructions: routine Additional instructions: [] Smoking cessation referral if applicable(refer to patient education folder for contact #) [] Refer to [facility] Booklet Call your doctor immediately for: * Fever > 100.5 * Heavy vaginal bleeding ( >1 pad per hour) * Severe persistent headache * Shortness of breath * Reddened, hot, painful area to leg or breast * Drainage or odor from incision. * Keep incision clean and dry at all times and follow doctor's instructions regarding bathing/showering - Follow up plan Follow up: VISHAL DE LA O MD [Primary Care Provider] - 7 Days NESSA MILLS MD [Staff Physician] - 14 Days Forms: Work/School Release Form
[2018-04-12 19:51] VITALS: BP 132/55
== END 2018-04-12 16:00 | disposition home or self-care (01) ==
LOC: OR 11:05 → OB 17:03
PROVIDERS: ADMIT Obstetrics & Gynecology; ATTEND Obstetrics & Gynecology
DX: N95.0 Postmenopausal bleeding (principal); D25.1 Intramural leiomyoma of uterus; D25.2 Subserosal leiomyoma of uterus; N84.0 Polyp of corpus uteri; N80.0 Endometriosis of uterus; I10 Essential (primary) hypertension; E05.90 Thyrotoxicosis, unspecified without thyrotoxic crisis or storm
CPT/HCPCS: 36415; 58571; 81025; 85014; 85018; 85025; 86850; 86900; 86901; 88307; 96365; 96366; 96375; 96376; C1765; C9250; G0378; J0360; J0690; J1100; J1170; J1885; J2250; J2270; J2405; J2704; J7120; J7121; S2900